=== PATIENT | male | born 1970 | race Caucasian/White ===

== ENCOUNTER 2023-06-24 18:19 | Inpatient (IN) | payer OTHER ==
[2023-06-24 20:08] VITALS: BMI 25.1
[2023-06-24] MEDS ORDERED: LOPERAMIDE HCL 2 MG CAPSULE PO PRN (21:52)
[2023-06-24] MEDS ORDERED: ONDANSETRON *ODT* 4 MG TABLET SL PRN (21:52)
[2023-06-24] MEDS ORDERED: NICOTINE POLACRILEX 2 MG GUM BUC PRN (21:52)
[2023-06-24] MEDS ORDERED: DICYCLOMINE HCL 10 MG CAPSULE PO PRN (21:52)
[2023-06-24] MEDS ORDERED: MAGNESIUM HYDROX 2400MG/30ML ORAL SUSPENSION 30 ML CUP PO PRN (21:52)
[2023-06-24] MEDS ORDERED: MAG HYDROX/AL HYDROX/SIMETH 30 ML UNIT-DOSE CUP PO PRN (21:52)
[2023-06-24] MEDS ORDERED: BENZONATATE 200 MG CAPSULE PO PRN (21:52)
[2023-06-24] MEDS ORDERED: ACETAMINOPHEN 325 MG TABLET (FP) PO PRN (21:52)
[2023-06-24] MEDS ORDERED: POLYETHYLENE GLYCOL (HEALTHYLAX) 3350 17 GM PACKET PO PRN (21:52)
[2023-06-24] MEDS ORDERED: BISMUTH SUBSALICYLATE 524 MG/30 ML PO PRN (21:52)
[2023-06-24] MEDS ORDERED: guaiFENesin 600 MG TABLET.ER (FP) PO PRN (21:52)
[2023-06-24] MEDS ORDERED: IBUPROFEN 600 MG TABLET (FP) PO PRN (21:52)
[2023-06-24] MEDS ORDERED: BENZOCAINE/MENTHOL (CHLORASEPTIC ) LOZENGE MM PRN (21:52)
[2023-06-24] MEDS ORDERED: IBUPROFEN 400 MG TABLET (FP) PO PRN (21:52)
[2023-06-24] MEDS ORDERED: P-EPHED 60MG/TRIPROLIDI 2.5MG TABLET PO PRN (21:52)
[2023-06-24] MEDS: MELATONIN 5 MG TABLETS PO SCH (22:42)
[2023-06-24] MEDS: THIAMINE HCL 100 MG TABLET (FP) PO SCH (22:42)
[2023-06-24] MEDS: METHOCARBAMOL 500 MG TABLET PO PRN (22:42)
[2023-06-24] MEDS: chlordiazePOXIDE HCL 25 MG CAPSULE PO SCH (22:43)
[2023-06-25] MEDS: chlordiazePOXIDE HCL 25 MG CAPSULE PO SCH ×4 (05:40→22:05)
[2023-06-25] MEDS: PRENATAL VITAMINS W/ FOLIC ACID TABLET (FP) PO SCH (10:10)
[2023-06-25 10:36] LABS: HEMATOCRIT 35.2 % (35.4-49); HEMOGLOBIN 12.2 GM/dL (11.7-16.9); MCH 29.8 pg (25.7-33.7); MCHC 34.6 g/dl (32.0-35.9); MEAN CELL VOLUME 86.2 fl (80-96); PLATELET COUNT 237 10^3/uL (134-434); RBC 4.08 M/mm3 (4.00-5.60); RDW 14.9 % (11.9-15.9); WHITE BLOOD COUNT 5.6 K/mm3 (4.0-10.0)
[2023-06-25 10:46] LABS: CHLORIDE 104 mmol/L (98-107); POTASSIUM 3.6 mmol/L (3.5-5.1); SODIUM 135 mmol/L (136-145)
[2023-06-25 10:48] LABS: ALBUMIN 3.1 g/dl (3.4-5.0); ANION GAP 2 mmol/L (4-13); BLOOD UREA NITROGEN 14.7 mg/dL (7-18); CALCIUM 8.6 mg/dL (8.5-10.1); CO2 29 mmol/L (21-32); GLUCOSE,RANDOM 165 mg/dL (74-106)
[2023-06-25 10:51] LABS: SGOT/AST 12 U/L (15-37); SGPT/ALT 13 U/L (13-61)
[2023-06-25 10:53] LABS: BILIRUBIN,TOTAL 0.3 mg/dL (0.2-1); TOT PROT 6.6 g/dl (6.4-8.2)
[2023-06-25 10:54] LABS: ALK PHOS 73 U/L (45-117)
[2023-06-25] MEDS ORDERED: PNEUMOC 20-VAL CONJ-DIP CRM/PF 0.5 ML SYRINGE IM ONE (12:00)
[2023-06-25] MEDS: chlordiazePOXIDE HCL 25 MG CAPSULE PO PRN (12:27)
[2023-06-25] MEDS: hydrOXYzine PAMOATE 25 MG CAPSULE (FP) PO PRN (13:44)
[2023-06-25] MEDS ORDERED: LORazepam 2 MG/ML SDV VIAL IM ONE (19:00)
[2023-06-25] MEDS: THIAMINE HCL 100 MG TABLET (FP) PO SCH (22:05)
[2023-06-25] MEDS: MELATONIN 5 MG TABLETS PO SCH (22:05)
[2023-06-25] MEDS: METHOCARBAMOL 500 MG TABLET PO PRN (22:05)
[2023-06-26] MEDS: chlordiazePOXIDE HCL 25 MG CAPSULE PO PRN ×3 (02:48→13:35)
[2023-06-26] MEDS: chlordiazePOXIDE HCL 25 MG CAPSULE PO SCH ×4 (05:51→22:04)
[2023-06-26] MEDS ORDERED: cloNIDine HCL 0.1 MG TABLET PO PRN (09:01)
[2023-06-26] MEDS ORDERED: methaDONE HCL 10 MG TABLET (FOR DETOX USE ONLY) PO ONE (09:15)
[2023-06-26] MEDS: PRENATAL VITAMINS W/ FOLIC ACID TABLET (FP) PO SCH (09:59)
[2023-06-26] MEDS: hydrOXYzine PAMOATE 25 MG CAPSULE (FP) PO PRN (22:05)
[2023-06-26] MEDS: METHOCARBAMOL 500 MG TABLET PO PRN (22:05)
[2023-06-26] MEDS: THIAMINE HCL 100 MG TABLET (FP) PO SCH (22:05)
[2023-06-26] MEDS: MELATONIN 5 MG TABLETS PO SCH (22:05)
[2023-06-27] MEDS ORDERED: chlordiazePOXIDE HCL 10 MG CAPSULE PO PRN
[2023-06-27] MEDS: chlordiazePOXIDE HCL 10 MG CAPSULE PO SCH ×2 (05:18→10:05)
[2023-06-27 09:08] VITALS: BP 130/85; PULSE 80; RESP 18; TEMP 97.7
[2023-06-27] MEDS: PRENATAL VITAMINS W/ FOLIC ACID TABLET (FP) PO SCH (10:04)
[2023-06-28] MEDS ORDERED: chlordiazePOXIDE HCL 10 MG CAPSULE PO SCH (05:00)
[2023-06-28] MEDS ORDERED: methaDONE HCL 10 MG TABLET (FOR DETOX USE ONLY) PO ONE (10:00)
[2023-06-29] MEDS ORDERED: chlordiazePOXIDE HCL 10 MG CAPSULE PO ONE (05:00)
[2023-06-30] MEDS ORDERED: methaDONE HCL 10 MG TABLET (FOR DETOX USE ONLY) PO ONE (10:00)
== END 2023-06-27 11:19 | disposition left against medical advice (07) | DRG 770 ==
LOC: YASAS 18:19 → Y3N 22:04
PROVIDERS: ADMIT Allergy & Immunology; ATTEND Surgery
PROC: HZ2ZZZZ Detoxification Services for Substance Abuse Treatment (ICD-10-PCS; principal; 2023-06-24)
DX: F11.23 Opioid dependence with withdrawal (principal); F10.230 Alcohol dependence with withdrawal, uncomplicated; F13.20 Sedative, hypnotic or anxiolytic dependence, uncomplicated; F12.20 Cannabis dependence, uncomplicated; F17.210 Nicotine dependence, cigarettes, uncomplicated; F19.24 Other psychoactive substance dependence with psychoactive substance-induced mood disorder; F41.9 Anxiety disorder, unspecified
CPT/HCPCS: 36415; 80053; 80307; 82947; 83036; 84295; 85027; 86780; 87635

== ENCOUNTER 2024-01-06 18:58 | Inpatient (IN) | payer OTHER ==
[2024-01-06 19:20] VITALS: BMI 23.4
[2024-01-06] MEDS ORDERED: POLYETHYLENE GLYCOL (HEALTHYLAX) 3350 17 GM PACKET PO PRN (20:15)
[2024-01-06] MEDS ORDERED: hydrOXYzine PAMOATE 25 MG CAPSULE (FP) PO PRN (20:15)
[2024-01-06] MEDS ORDERED: IBUPROFEN 400 MG TABLET (FP) PO PRN (20:15)
[2024-01-06] MEDS ORDERED: BENZOCAINE/MENTHOL (CHLORASEPTIC ) LOZENGE MM PRN (20:15)
[2024-01-06] MEDS ORDERED: BISMUTH SUBSALICYLATE 524 MG/30 ML PO PRN (20:15)
[2024-01-06] MEDS ORDERED: LOPERAMIDE HCL 2 MG CAPSULE PO PRN (20:15)
[2024-01-06] MEDS ORDERED: MAGNESIUM HYDROX 2400MG/30ML ORAL SUSPENSION 30 ML CUP PO PRN (20:15)
[2024-01-06] MEDS ORDERED: BENZONATATE 200 MG CAPSULE PO PRN (20:15)
[2024-01-06] MEDS ORDERED: NALOXONE HCL 0.4 MG/ML VIAL IM PRN (20:15)
[2024-01-06] MEDS ORDERED: ACETAMINOPHEN 325 MG TABLET (FP) PO PRN (20:15)
[2024-01-06] MEDS ORDERED: IBUPROFEN 600 MG TABLET (FP) PO PRN (20:15)
[2024-01-06] MEDS ORDERED: guaiFENesin 600 MG TABLET.ER (FP) PO PRN (20:15)
[2024-01-06] MEDS ORDERED: NALOXONE (NARCAN) HCL 4 MG/0.1 ML SPRAY NS PRN (20:15)
[2024-01-06] MEDS ORDERED: NICOTINE POLACRILEX 4 MG GUM BUC PRN (20:15)
[2024-01-06] MEDS ORDERED: chlordiazePOXIDE HCL 25 MG CAPSULE ONE (20:33)
[2024-01-06] MEDS: chlordiazePOXIDE HCL 25 MG CAPSULE PO PRN (20:35)
[2024-01-06] MEDS: THIAMINE 100 MG TABLET PO SCH (22:12)
[2024-01-06] MEDS: METHOCARBAMOL 500 MG TABLET PO PRN (22:12)
[2024-01-06] MEDS: MELATONIN 5 MG TABLETS PO SCH (22:13)
[2024-01-06] MEDS: chlordiazePOXIDE HCL 25 MG CAPSULE PO SCH (22:13)
[2024-01-06] MEDS: cloNIDine HCL 0.1 MG TABLET PO PRN (23:26)
[2024-01-07] MEDS: methaDONE HCL 40 MG DISPERSABLE TABLET PO SCH (08:46)
[2024-01-07] MEDS: NICOTINE 14 MG/24 HOURS TOPICAL PATCH TD SCH (10:03)
[2024-01-07] MEDS: PANTOPRAZOLE 40 MG TABLET PO SCH (10:03)
[2024-01-07] MEDS: PRENATAL VITAMINS W/ FOLIC ACID TABLET (FP) PO SCH (10:05)
[2024-01-07 11:43] LABS: HEMATOCRIT 43.6 % (35.4-49); HEMOGLOBIN 14.1 GM/dL (11.7-16.9); MCH 28.1 pg (25.7-33.7); MCHC 32.4 g/dl (32.0-35.9); MEAN CELL VOLUME 86.7 fl (80-96); MEAN PLT VOLUME 7.3 fl (7.5-11.1); PLATELET COUNT 205 10^3/uL (134-434); RBC 5.03 M/mm3 (4.00-5.60); RDW 15.2 % (11.9-15.9); WHITE BLOOD COUNT 7.7 K/mm3 (4.0-10.0)
[2024-01-07 12:03] LABS: CHLORIDE 100 mmol/L (98-107); POTASSIUM 4.2 mmol/L (3.5-5.1); SODIUM 138 mmol/L (136-145)
[2024-01-07 12:08] LABS: CALCIUM 8.9 mg/dL (8.5-10.1)
[2024-01-07 12:09] LABS: ANION GAP 9 mmol/L (4-13); BLOOD UREA NITROGEN 24.7 mg/dL (7-18); CO2 29 mmol/L (21-32); GLUCOSE,RANDOM 111 mg/dL (74-106)
[2024-01-07 12:12] LABS: SGOT/AST 40 U/L (15-37); SGPT/ALT 24 U/L (13-61)
[2024-01-07 12:13] LABS: TOT PROT 8.3 g/dl (6.4-8.2)
[2024-01-07 12:14] LABS: BILIRUBIN,TOTAL 0.7 mg/dL (0.2-1)
[2024-01-07 12:15] LABS: ALK PHOS 96 U/L (45-117)
[2024-01-07] MEDS: DICYCLOMINE HCL 10 MG CAPSULE PO PRN (17:27)
[2024-01-07] MEDS: TRIMETHOBENZAMIDE HCL 200MG/2ML INJ IM ONE (18:37)
[2024-01-08] MEDS: chlordiazePOXIDE HCL 25 MG CAPSULE PO SCH (05:40)
[2024-01-08] MEDS: ONDANSETRON *ODT* 4 MG TABLET SL PRN (05:56)
[2024-01-08] MEDS: MAG HYDROX/AL HYDROX/SIMETH 30 ML UNIT-DOSE CUP PO PRN (19:36)
[2024-01-08] MEDS: TRIMETHOBENZAMIDE HCL 200MG/2ML INJ IM ONE (20:38)
[2024-01-09] MEDS ORDERED: chlordiazePOXIDE HCL 10 MG CAPSULE PO PRN
[2024-01-09] MEDS: chlordiazePOXIDE HCL 10 MG CAPSULE PO SCH (05:51)
[2024-01-10] MEDS: chlordiazePOXIDE HCL 10 MG CAPSULE PO SCH (05:23)
[2024-01-10 09:47] VITALS: BP 107/72; PULSE 80; RESP 20; TEMP 97.6
[2024-01-11] MEDS ORDERED: chlordiazePOXIDE HCL 10 MG CAPSULE PO ONE (05:00)
== END 2024-01-10 09:10 | disposition home or self-care (01) | DRG 773 ==
LOC: YASAS 18:58 → Y3N 20:25
PROVIDERS: ADMIT Allergy & Immunology; ATTEND Surgery
PROC: HZ2ZZZZ Detoxification Services for Substance Abuse Treatment (ICD-10-PCS; principal; 2024-01-06)
DX: F10.230 Alcohol dependence with withdrawal, uncomplicated (principal); F11.20 Opioid dependence, uncomplicated; F16.10 Hallucinogen abuse, uncomplicated; F17.210 Nicotine dependence, cigarettes, uncomplicated; F19.24 Other psychoactive substance dependence with psychoactive substance-induced mood disorder; F43.10 Post-traumatic stress disorder, unspecified; F32.A Depression, unspecified; K21.9 Gastro-esophageal reflux disease without esophagitis
CPT/HCPCS: 36415; 80053; 80305; 80307; 85027; 86780; 93005; 93010; Q0162